=== PATIENT | male | born 1945 | race Caucasian/White ===

== ENCOUNTER 2021-01-20 13:57 | Outpatient (CLI) | payer MEDICARE, OTHER ==
[2021-01-20] MEDS ORDERED: LISI-167 PO (14:20)
[2021-01-20] MEDS ORDERED: MULT-658 PO (14:20)
[2021-01-20] MEDS ORDERED: ATOR-2 PO (14:20)
[2021-01-20 14:41] LABS: BASOPHILS % (AUTO) 1 % (0-1); EOSINOPHILS % (AUTO) 2 % (1-7); LYMPHOCYTES % (AUTO) 19 % (22-44); MEAN CORPUSCULAR HGB CONC 34.2 g/dL (33.2-36.2); MEAN PLATELET VOLUME 8.3 fL (7.4-10.4); MONOCYTES % (AUTO) 11 % (2-9); NEUTROPHILS % (AUTO) 68 % (42-75); PLATELET COUNT 189 x10^3/uL (130-400); RED BLOOD COUNT 4.74 x10^6/uL (4.38-5.82); RED CELL DISTRIBUTION WIDTH 12.6 % (9.4-14.8)
[2021-01-20 14:42] LABS: MICROSCOPIC NOT IND
[2021-01-20] MEDS ORDERED: ASPI-963 PO (14:47)
[2021-01-20 14:54] LABS: ALANINE AMINOTRANSFERASE 72 U/L (12-78); ALBUMIN 3.8 g/dL (3.4-5.0); CALCIUM 8.8 mg/dL (8.5-10.1); CHLORIDE 106 mmol/L (98-107); CREATININE 1.16 mg/dL (0.7-1.3)
[2021-01-20 14:57] LABS: ALKALINE PHOSPHATASE 60 U/L (45-117); BILIRUBIN,TOTAL 0.7 mg/dL (0.2-1.0); TOTAL PROTEIN 7.1 g/dL (6.4-8.2)
[2021-01-20 15:03] LABS: ANION GAP 4 mmol/L (5-15); PROTHROMBIN TIME 10.7 Seconds (9.6-11.5)
== END 2021-01-20 23:59 | disposition home or self-care (01) ==
LOC: STAR 13:57
PROVIDERS: ATTEND Urology
DX: Z01.818 Encounter for other preprocedural examination (principal); N35.919 Unspecified urethral stricture, male, unspecified site; I45.10 Unspecified right bundle-branch block
CPT/HCPCS: 36415; 80053; 81003; 85025; 85610; 87086; 93005

== ENCOUNTER 2021-01-28 13:51 | Day surgery (SDC) | payer MEDICARE, BC ==
[~2021-01-28] VITALS: Ht 190.5 cm; Wt 108.1 kg
[~2021-01-28 13:51] MED LIST: ACETAMINOPHEN 325 MG TABLET PO PRN; ASPI-963 PO; ATOR-2 PO; EPHEDRINE 50 MG/ML, 1ML IVPush PRN; FENTANYL PF 100 MCG/2ML IV PRN; HYDROmorphone 1 MG/ML, 1ML INJ IVPush PRN; LABETALOL 5MG/ML, 20ML IV PRN; LISI-167 PO; MULT-658 PO; ONDANSETRON 2MG/ML, 2ML IVPush PRN; OXYcodone 5 MG/5 ML ORAL.SOL UDC PO PRN; PROMETHAZINE 25 MG/ML, 1ML IVPush PRN; hydrALAzine 20 MG/ML, 1ML IV PRN
[2021-01-28] MEDS ORDERED: FENTANYL PF 250 MCG/5ML ONE (14:37)
[2021-01-28 14:38] VITALS: BP 156/86
[2021-01-28] MEDS ORDERED: ONDANSETRON 2MG/ML, 2ML ONE (14:59)
[2021-01-28] MEDS ORDERED: PROPOFOL 10 MG/ML, 20ML ONE (14:59)
[2021-01-28] MEDS ORDERED: CEFAZOLIN 1,000 MG ONE (14:59)
[2021-01-28] MEDS ORDERED: DEXAMETHASONE 4 MG/ML, 1ML ONE (14:59)
[2021-01-28] MEDS ORDERED: LACTATED RINGERS 1,000 ML IV SCH (15:00)
[2021-01-28] MEDS ORDERED: CHLORHEXIDINE 15 ML UDC PO ONE (15:00)
[2021-01-28] MEDS ORDERED: LIDOCAINE-MPF 2% ,5ML ONE (15:31)
[2021-01-28] MEDS ORDERED: KETOROLAC 30 MG/1 ML ONE (15:31)
== END 2021-01-28 18:50 | disposition home or self-care (01) ==
LOC: OR 13:51
PROVIDERS: ATTEND Urology
DX: N35.912 Unspecified bulbous urethral stricture, male (principal); N40.1 Benign prostatic hyperplasia with lower urinary tract symptoms; R35.1 Nocturia; I10 Essential (primary) hypertension; E78.5 Hyperlipidemia, unspecified; Z20.822 Contact with and (suspected) exposure to COVID-19; Z79.82 Long term (current) use of aspirin; Z79.899 Other long term (current) drug therapy; Z87.891 Personal history of nicotine dependence
CPT/HCPCS: 52276; 87635; C1769; J0690; J1100; J1885; J2405; J2704; J3010; J7120